=== PATIENT | female | born 2000 | race Two or more races ===

== ENCOUNTER → 2021-09-14 08:57 | Emergency (ER) | payer BC ==
[~2021-09-14] VITALS: Ht 167.6 cm; Wt 90.7 kg
[~2021-09-14 08:57] MED LIST: CIPR-173 PO; IBUP800T27 PO; KETOROLAC TROMETH 30 MG/ML 1ML VIAL IV ONE; ONDANSETRON HCL 4 MG/2 ML VIAL IV ONE; SODIUM CHLORIDE 0.9% 1,000 ML IV ONE; TAM04C PO; cefTRIAXone 1GM/50ML D5W 50 ML IV ONE
[2021-09-14 09:06] VITALS: BP 125/83
[2021-09-14 09:43] LABS: Urine Bacteria NONE SEEN /hpf (None Seen); Urine Blood TRACE /uL (Negative); Urine Mucus FEW (None Seen); Urine Specific Gravity 1.028 (1.001-1.035); Urine WBC 34 /hpf (0 - 5)
[2021-09-14 10:02] LABS: Basophils # (auto) 0.1 10 ^3/uL (0-0.2); Basophils % (auto) 1.5 % (0.0-2.0); Eosinophils # (auto) 0.1 10 ^3/uL (0-0.8); Eosinophils % (auto) 1.2 % (0.0-7.0); Hematocrit 42.2 % (36.0-46.0); Hemoglobin 14.2 g/dL (12.2-16.2); Lymphocytes # (auto) 1.7 10 ^3/uL (0.4-5.4); Lymphocytes % (auto) 19.2 % (10.0-50.0); Mean Corpuscular Hemoglobin 28.9 pg (28.0-32.0); Mean Corpuscular Hgb Conc. 33.6 g/dL (32.0-36.0); Mean Corpuscular Volume 85.9 fL (80.0-100.0); Monocytes # (auto) 0.5 10 ^3/uL (0-1.3); Monocytes % (auto) 5.3 % (0.0-12.0); Neutrophils # (auto) 6.3 10 ^3/uL (1.6-8.6); Neutrophils % (auto) 72.8 % (37.0-80.0); Nucleated Red Blood Cells % 0.1 %; Red Blood Cells 4.91 10^6/uL (4.0-5.20); Red Cell Distribution Width 14.9 % (11.8-14.3); White Blood Cell 8.7 10^3/uL (4.4-10.8)
[2021-09-14 10:08] LABS: BUN/Creatinine Ratio 13.5; Calcium 8.7 mg/dL (8.5-10.1); Potassium 4.4 mmol/L (3.5-5.1)
== END | disposition left against medical advice (07) ==
LOC: ER 08:57
DX: N20.0 Calculus of kidney (principal); N39.0 Urinary tract infection, site not specified; N13.30 Unspecified hydronephrosis; Z53.29 Procedure and treatment not carried out because of patient's decision for other reasons
CPT/HCPCS: 36415; 74176; 80048; 81001; 81025; 85025; 96361; 96365; 96375; 99284; J0696; J1885; J2405; J7030

== ENCOUNTER 2024-06-08 03:44 | Observation (INO) | payer BC, OTHER ==
[~2024-06-08] VITALS: Ht 167.6 cm; Wt 86.2 kg
[~2024-06-08 03:44] MED LIST changes: +IBUP-1456 PO; -IBUP800T27 PO; -KETOROLAC TROMETH 30 MG/ML 1ML VIAL IV ONE; -ONDANSETRON HCL 4 MG/2 ML VIAL IV ONE; -SODIUM CHLORIDE 0.9% 1,000 ML IV ONE; -TAM04C PO; +TAMS-35 PO; -cefTRIAXone 1GM/50ML D5W 50 ML IV ONE
[2024-06-08] MEDS ORDERED: PREN1TAB71 OR (04:10)
[2024-06-08] MEDS ORDERED: ONDANSETRON HCL 4 MG/2 ML VIAL IM ONE (05:15)
[2024-06-08] MEDS: HYDROmorphone HCL 2 MG/ML VL/or syr IV ONE (05:22)
[2024-06-08] MEDS: SODIUM CHLORIDE 0.9% 1,000 ML IV ONE (05:23)
[2024-06-08] MEDS: cefTRIAXone 1GM/50ML D5W 50 ML IV ONE (05:23)
[2024-06-08 05:52] VITALS: BP 119/62; PULSE 90; RESP 16
[2024-06-08 05:55] LABS: Basophils # (auto) 0 10 ^3/uL (0-0.2); Eosinophils # (auto) 0 10 ^3/uL (0-0.8); Hematocrit 32.5 % (36.0-46.0); Hemoglobin 10.8 g/dL (12.2-16.2); Lymphocytes # (auto) 1.1 10 ^3/uL (0.4-5.4); Lymphocytes % (auto) 7.8 % (10.0-50.0); Mean Corpuscular Hemoglobin 29.5 pg (28.0-32.0); Mean Corpuscular Hgb Conc. 33.4 g/dL (32.0-36.0); Mean Corpuscular Volume 88.4 fL (80.0-100.0); Monocytes # (auto) 0.3 10 ^3/uL (0-1.3); Monocytes % (auto) 2.2 % (0.0-12.0); Neutrophils # (auto) 12.7 10 ^3/uL (1.6-8.6); Platelet Count (auto) 241 10^3/uL (140-450); Red Blood Cells 3.67 10^6/uL (4.0-5.20); Red Cell Distribution Width 14.2 % (11.8-14.3); White Blood Cell 14.1 10^3/uL (4.4-10.8)
[2024-06-08 06:13] LABS: Alanine Aminotransferase 24 U/L (7-40); Albumin 3.7 g/dL (3.2-4.8); Alkaline Phosphatase 62 U/L (46-116); Anion Gap 12 (5-15); Aspartate Aminotransferase 17 U/L (13-40); BUN/Creatinine Ratio 15.6 (10.0-20.0); Bilirubin, Total 0.5 mg/dL (0.2-1.0); Blood Urea Nitrogen 10 mg/dL (9-23); Glucose 103 mg/dL (74-106); Sodium 139 mmol/L (136-145); Total Protein 5.9 g/dL (5.7-8.2)
--- NOTE | 2024-06-08 06:25 | DVHHP2 ---
OB CC & HPI Date Date of Admission: Jun 08, 2024 Patient Identification: : 4 Para: 1 EDC: August 19, 2024 EGA: 29w Chief Complaints: Reason for admission: other (h/o Renal Calculi ( Reports abdominal and back pain similar to what she has experienced inthe past)) Other reason for admission: Possible Renal Calculi Admission Nurse Assessment Rev: Yes History of Present Complaints 23yo G4, 1021, previous C- section x1, EDC 08/19/24, EGA 29weeks presents sto place and reports she thinks she has gall stone pain. Pain started on Saturday but has gradually worsened since then. Usually experiences kidney stone pain every 2 to 3years and it has been that long since she had one. States this pain is same characteristics as the last time she was diagnosed with kidney stone. Believes there are currently 2 stones; one that she may be able to pass before too long as she feels pain more around her bladder and also in her back Past Medical History Cardiac: No pertinent Hx Pulmonary: No pertinent Hx Central Nervous System: No pertinent Hx GI: No pertinent Hx Hemotology/Oncology: No pertinent Hx Hepatobiliary: No pertinent Hx Psychiatric: No pertinent Hx Musculoskeletal: No pertinent Hx Rheumotologic: No pertinent Hx Infectious Disease: No peritnent Hx ENT: No pertinent Hx Renal/: Other (Renal Stones) Endocrine: No pertinent Hx Dermatology: No pertinent Hx Past Surgical History: OB History OB History Care: Good Care Ultrasounds: Normal mid trimester US Obstetrical Complications: None Medical Complications: Other (Renal Stones) Other Concerns: None Allergies: Coded Allergies: No Known Drug Allergy (Verified Allergy, Unknown, 09/14/21) Home Meds Active Scripts Ibuprofen (Ibuprofen) 800 Mg Tab, 800 MG PO TID PRN, #30 TAB Prov:WALDEMAR VERA 09/14/21 Tamsulosin Hcl (Flomax) 0.4 Mg Cap, 0.4 MG PO DAILY, #20 CAP Prov:WALDEMAR VERA 09/14/21 Ciprofloxacin Hcl (Cipro) 500 Mg Tab, 500 MG PO BID for 7 Days, #14 TAB Prov:WALDEMAR VERA 09/14/21 Reported Medications Vit W/ Ferrous Fumara (PNV PLUS MULTIVI) Plus Tab, 1 OR, TAB 06/08/24 Review of Systems Constitutional: No symptom reported Ears, Nose, & Throat: No symptom reported Eyes: No symptom reported Pulmonary/Respiratory: No symptom reported Cardiovascular: No symptom reported Gastrointestinal: No symptom reported Genitourinary: Pain, Other (Right lower back pain) Musculoskeletal: No symptom reported Skin: No symptom reported Psychiatric: No symptom reported Endocrine: No symptom reported Hemotologic/Lymphatic: No symptom reported OB Admission Exam Physical Exam Vitals: Vital Signs Date Time Temp Pulse Resp B/P (MAP) Pulse Ox O2 Delivery O2 Flow Rate FiO2 06/08/24 05:52 90 16 119/62 HEENT: TMs Normal, Fontanelles Normal, Nasal Mucosa Normal, Eyes non-injected, Oropharynx Normal, PERRLA, Moist Membranes, EOMI Heart: Rhythm Normal Lungs: Clear Abdomen: Other (Rt CVA tenderness) Extremities: Normal Reflexes: Normal Heart Rate: 130's Accelerations: Accelerations Present Decelerations: No Decelerations Long-Term Variability: Average (6-25) Contractions on Admission: None OB Plan Plan Admitting Diagnosis: IUP at 29week 5d Presumptive Renal Calculi Plan: Expectant Management, Other (Obtain Kidney Ultrasound and OB ultrasound) Other Plan: Labs: CBC, CMP, UA C& S IV hydration Analgesia: Dilaudid 0.2mg IV Ceftriaxone 1G IVPB Ondansetron 4mg IV PRN for nausea & vomiting x1 dose Note: Above plan in consultation with Dr Gomez 7:[address] Casey Visit Coding OBGYN Date of Service: Jun 08, 2024 Billing Provider: DONELL WAY CNM NOTE TAKER Common Visit Codes: [id number] INP/OBS CARE (HIGH) DONELL WAY CNM Jun 08, 2024 06:25
[2024-06-08 06:31] LABS: Calcium 8.5 mg/dL (8.7-10.4); Carbon Dioxide 19 mmol/L (20-31); Chloride 108 mmol/L (98-107); Potassium 3.4 mmol/L (3.5-5.1)
[2024-06-08 06:34] LABS: Urine Bacteria FEW /hpf (None Seen); Urine Blood 3+ /uL (Negative); Urine Clarity Turbid (Clear); Urine Color Yellow (Yellow); Urine Mucus FEW (None Seen); Urine Protein, UAD 1+ (Negative); Urine Specific Gravity 1.027 (1.001-1.035); Urine Squamous Epithelial Cell FEW /hpf (<5); Urine Urobilinogen Normal (Negative); Urine WBC 4 /HPF (0-5); Urine pH 6.5 (5.0-9.0)
[2024-06-08] MEDS: ONDANSETRON HCL 4 MG/2 ML VIAL IV ONE (06:48)
--- NOTE | 2024-06-08 06:56 | DVH ---
EXAM: US Retroperitoneal Limited, Renal CLINICAL INDICATION: R flank pain/ history of kidney stones TECHNIQUE: Real-time limited ultrasound of the retroperitoneum with image documentation. COMPARISON: None FINDINGS: RIGHT KIDNEY: Moderate right hydronephrosis without obstructing calculus. Right kidney measures 11 .0 cm. LEFT KIDNEY: Unremarkable. No stones. No hydronephrosis. Left kidney measures 10.7 cm. OTHER FINDINGS: . Prevoid volume 113 cc. IMPRESSION: Moderate right hydronephrosis without obstructing calculus.
--- NOTE | 2024-06-08 07:09 | DVH ---
EXAM: US Second or Third Trimester , Transabdominal CLINICAL INDICATION: abd pain TECHNIQUE: Real-time transabdominal obstetrical ultrasound of the maternal pelvis and a second or th ird trimester with image documentation. COMPARISON: None FINDINGS: FETUS: HEART RATE: heart rate 135 beats per minute. PRESENTATION: PLACENTA: Unremarkable. No placenta previa or abruption. AMNIOTIC FLUID: BRIGITTE 22.1 cm. ANATOMY: Intracranial/face anatomy not seen. Spinal anatomy not seen. Abdominal anatomy not seen. Extremities not seen. Four-chamber heart not seen. Umbilical cord not seen. BIOMETRICS GESTATIONAL AGE: Gestational age 30 weeks and 3 days. GEORGE: GEORGE . EFW: Estimated weight 1544 g. BPD: BPD 7.6 cm. HC: HC 27.92 cm. HC AC 1.07. AC: AC 26.12 cm. FL: FL 5.76 cm. FL / AC 22.03. MATERNAL: UTERUS: Unremarkable. No myometrial mass. CERVIX: Unremarkable as visualized. Closed. FREE FLUID: No free fluid. OTHER FINDINGS: . CI 80.27. IMPRESSION: No placenta previa or abruption.
[2024-06-08] MEDS: SODIUM CHLORIDE 0.9% 1,000 ML IV SCH (07:27)
[2024-06-08] MEDS: ACETAMINOPHEN/CODEINE#3 (300/30mg) TAB PO PRN (07:53)
[2024-06-08] MEDS ORDERED: BACDST PO (08:00)
[2024-06-08] MEDS ORDERED: ACE3T PO (08:00)
--- NOTE | 2024-06-08 08:16 | DVHDS2 ---
Physician Discharge Progress N Final Diagnosis: IUP 29 wk acute rt flank pain Right hydronephrosis Hx of nephrolithiasis Complicated UTI Operations or Procedures: Operations or Procedures NST, OB US, Renal US Condition on Discharge: Stable Disposition: Home Discharge Instructions: Diet: Regular Activity: Light activity Follow Up/Referral: 2d w/ Dr Gomez Medications: Bactrim DS, Tylenol #3 Follow Up Care: Discharge Statement: "Patient was advised to return to the ER or call 911 if any headaches, diz ziness, shortness of breath, chest pain, abdominal pain, bleeding, fevers, or worsening of medical condition. Patient was counseled about treatment plan, medications, possible side effects, patientverbalized understanding. All questions were answered to the best of my ability. This discharge took greater then 30 minutes in planning, reviewing documentation, counseling the patient, and discussing with other team members." Visit Coding OBGYN Date of Service: Jun 08, 2024 Billing Provider: EFE BARRERA DO BENEFITS OFFICER Common Visit Codes: 86506-SFX/OBS SAME DATE (HIGH) BENEFITS OFFICER Procedure Codes: 68430-37- NON-STRESS TEST EFE BARRERA DO Jun 08, 2024 08:16
[2024-06-08] MEDS ORDERED: NITR-87 PO (21:17)
== END 2024-06-08 09:18 | disposition home or self-care (01) ==
LOC: LDRP 03:44
PROVIDERS: ADMIT Obstetrics & Gynecology; ATTEND Obstetrics & Gynecology
DX: O23.43 Unspecified infection of urinary tract in pregnancy, third trimester (principal); N39.0 Urinary tract infection, site not specified; O26.833 Pregnancy related renal disease, third trimester; N13.30 Unspecified hydronephrosis; O99.891 Other specified diseases and conditions complicating pregnancy; M54.9 Dorsalgia, unspecified; Z98.890 Other specified postprocedural states; Z79.899 Other long term (current) drug therapy; Z3A.29 29 weeks gestation of pregnancy
CPT/HCPCS: 36415; 59025; 76775; 76805; 80053; 81001; 81002; 85025; 87086; 94760; 96361; 96365; 96375; G0378; J0696; J1171; J2405; 96360

== ENCOUNTER 2024-06-08 20:07 | Emergency (ER) | payer BC, OTHER ==
[~2024-06-08] VITALS: Ht 167.6 cm; Wt 86.6 kg
[~2024-06-08 20:07] MED LIST changes: +ACE3T PO; +BACDST PO; +PREN1TAB71 OR
--- NOTE | 2024-06-08 21:08 | ED.PDOC ---
General HPI Comments 23 y.o female with PMH of kidney stones, reports to the ED for a chief complaint of right sided flank pain that started today. Patient is 29 weeks gestation with COMPENSATION ADMINISTRATOR history of . Patient was seen at L&D earlier today for the pain, had an ultrasound, blood work and UA done which came back unremarkable and was discharged home with Tylenol and Bactrim. Patient reports Tylenol is not helping pain, states she received Dilaudid 0.2 earlier and that relieved her pain for an hours. Patient denies any hematuria, dysuria, fever or chills. Chief Complaint: Flank Pain Time Seen by MD: 20:53 Reviewed notes: Nurses Notes, Medications, Allergies Allergies: Coded Allergies: No Known Drug Allergy (Verified Allergy, Unknown, 09/14/21) Home Meds Active Scripts Sulfamethoxazole W/Trimethopri (Bactrim Ds Tablet) 1 Tab Tb, 1 TAB PO BID for 7 Days, #14 TAB Prov:EFE BARRERA DO 06/08/24 Acetaminophen W/ Codeine (Tylenol W/Cod #3) 1 Tab Tb, 1 TAB PO Q6HPRN PRN, #20 TAB Prov:EFE BARRERA DO 06/08/24 Reported Medications Vit W/ Ferrous Fumara (PNV PLUS MULTIVI) Plus Tab, 1 OR, TAB 06/08/24 Discontinued Scripts Ibuprofen (Ibuprofen) 800 Mg Tab, 800 MG PO TID PRN, #30 TAB Prov:WALDEMAR VERA 09/14/21 Tamsulosin Hcl (Flomax) 0.4 Mg Cap, 0.4 MG PO DAILY, #20 CAP Prov:WALDEMAR VERA 09/14/21 Ciprofloxacin Hcl (Cipro) 500 Mg Tab, 500 MG PO BID for 7 Days, #14 TAB Prov:WALDEMAR VERA 09/14/21 Information Source: Patient Mode of Arrival: Ambulatory Severity: Moderate Timing: Hours Duration: Since onset Onset: Spontaneous Symptoms: None History of: Kidney stone Location: (R) Flank associated signs and symptoms: Flank Pain Past Medical History PAST MEDICAL HISTORY: Kidney Stones Surgical History: Denies all surgeries COMPENSATION ADMINISTRATOR History: No Pertinent COMPENSATION ADMINISTRATOR History Family History Family History: Reviewed,noncontributory to illness Social History Smoker: Non-Smoker Alcohol: Denies ETOH Use Drugs: Denies Drug Use Lives In: Home Constitutional: denies: chills, diaphoresis, fatigue, fever, malaise, sweats, weakness, others EENTM: denies: blurred vision, double vision, ear bleeding, ear discharge, ear drainage, ear pain, ear ringing, eye pain, eye redness, hearing loss, mouth pain, mouth swelling, nasal discharge, nose bleeding, nose congestion, nose pain, photophobia, tearing, throat pain, throat swelling, voice changes, others Respiratory: denies: cough, hemoptysis, orthopnea, SOB at rest, shortness of breath, SOB with excertion, stridor, wheezing, others Cardiovascular: denies: chest pain, dizzy spells, diaphoresis, Dyspnea on exertion, edema, irregular heart beat, left arm pain, lightheadedness, palpitations, PND, syncope, others Gastrointestinal: denies: abdomen distended, abdominal pain, blood streaked bowels, constipated, diarrhea, dysphagia, difficulty swallowing, hematemesis, melena, nausea, poor appetite, poor fluid intake, rectal bleeding, rectal pain, vomiting, others Genitourinary: reports: flank pain (right ); denies: abnormal vagina bleeding, burning, dyspareunia, dysuria, frequency, hematuria, incontinence, pain, , vagina discharge, urgency, others Neurological: denies: dizziness, fainting, headache, left sided numbness, left sided weakness, numbness, paresthesia, pre-existing deficit, right sided numbness, right sided weakness, seizure, speech problems, tingling, tremors, weakness, others Musculoskeletal: denies: back pain, gout, joint pain, joint swelling, muscle pain, muscle stiffness, neck pain, others Integumetry: denies: bruises, change in color, change in hair/nails, dryness, laceration, lesions, lumps, rash, wounds, others Allergic/Immunocompromised: denies: Difficulty Healing, Frequent Infections, Hives, Itching, others Hematologic/Lymphatic: denies: anemia, blood clots, easy bleeding, easy bruising, swollen glands, others Endocrine: denies: excessive hunger, excessive sweating, excessive thirst, excessive urination, flushing, intolerance to cold, intolerance to heat, unexplained weight gain, unexplained weight loss, others Psychiatric: denies: anxiety, bipolar disorder, depression, hopeless, panic disorder, schizophrenia, sleepless, suicidal, others All Other Systems: Reviewed and Negative Physical Exam General Appearance: No Apparent Distress, Normal HEENT: Normal ENT Inspection, Pharynx Normal, TMs Normal Neck: Full Range of Motion, Non-Tender, Normal, Normal Inspection Respiratory: Chest Non-Tender, Lungs Clear, No Accessory Muscle Use, No Respiratory Distress, Normal Breath Sounds Cardiovascular: No Edema, No JVD, No Murmur, No Gallop, Normal Peripheral Pulses, Regular Rate/Rhythm Breast Exam: Deferred Gastrointestinal: No Organomegaly, Non Tender, No Pulsatile Mass, Normal Bowel Sounds, Soft Genitalia: Deferred Pelvic: Deferred Rectal: Deferred Extremities: No calf tenderness, Normal capillary refill, Normal inspection, Normal range of motion, Non-tender, No pedal edema Musculoskeletal : Apperance: Normal Neurologic: Alert, porcelain technician II-XII nml as Tested, No Motor Deficits, Normal Affect, Normal Mood, No Sensory Deficits Cerebellar Function: Normal Reflexes: Normal Skin: Dry, Normal Color, Warm Lymphatic: No Adenopathy Was a procedure done? Was a procedure done?: No Differential Diagnosis Kidney stone (Female): Musculoskeletal pain, Pancreatitis, Pyelonephritis X-Ray, Labs, Meds, VS Vital Signs Date Time Temp Pulse Resp B/P (MAP) Pulse Ox O2 Delivery O2 Flow Rate FiO2 06/08/24 20:34 98.7 96 18 116/62 (80) 97 X-Ray, Labs, Meds, VS Comment LABS AND ULTRASOUND REVIEWED FROM PRIOR VISIT IN L&D. PATIENT SHOWS SIGNS OF HYDRONEPHROSIS IN THE RIGHT KIDNEY ALONG WITH ELEVATED W LUIS BLOOD COUNT AND BLOOD IN HER URINE, HIGHLY SUSPICIOUS OF KIDNEY STONE WITH POSSIBLE URINARY TRACT INFECTION PATIENT WAS GIVEN 1 G ROCEPHIN IN L AND D AND SENT HOME WITH BACTRIM PATIENT STATES SHE WAS CONCERNED ABOUT TAKING BACTRIM HER PHARMACY ADVISED AGAINST IT PATIENT WILL BE SWITCHED AND STARTED ON MACROBID, GIVEN MORPHINE 4 MG IN THE ER. Time of 1ST Reevaluation: 21:11 Reevaluation 1ST: Unchanged Patient Education/Counseling: Diagnosis, Treatment, Prognosis, Need For Follow Up (PATIENT ADVISED TO FOLLOW-UP IN THE EMERGENCY ROOM IN THE NEXT 24 TO 48 HOURS IF SYMPTOMS DO NOT IMPROVE. ADVISED FOLLOW-UP WITH PCP IN THE NEXT 3 TO 5 DAYS. PATIENT VERBALIZED UNDERSTANDING. ) Family Education/Counseling: No Family Present Departure 1 Departure Time of Disposition: 21:16 Impression: Primary Impression: UTI (urinary tract infection) Qualified Codes: N30.01 - Acute cystitis with hematuria Disposition: HOME / SELF CARE / HOMELESS Condition: Fair e-Prescriptions Nitrofurantoin Monohydrate Mac (Macrobid) 100 Mg Cap 100 MG PO BID for 7 Days, #14 CAP Prov: SHO THIBODEAUX 06/08/24 Discharged With: Self Critical Care Note Critical Care Time?: No Stability Stability form required: No I personally scribed for SHO THIBODEAUX ([email or web address]) on 06/08/24 at 21:08. Electronically submitted by Nupur Ortiz ([facility]). SHO THIBODEAUX Jun 08, 2024 21:08
[2024-06-08] MEDS ORDERED: NITR-87 PO (21:17)
[2024-06-08 22:14] VITALS: PULSE 97; RESP 18; TEMP 98.3; O2SAT 98
[2024-06-08 22:34] VITALS: BP 129/79; PULSE 97; RESP 18
[2024-06-08] MEDS: MORPHINE SULFATE 4 MG/ML SYR/VIAL IM ONE (22:34)
[2024-06-08 22:50] LABS: Urine Bacteria MANY /hpf (None Seen); Urine Blood Negative /uL (Negative); Urine Clarity Turbid (Clear); Urine Color Light-Yellow (Yellow); Urine Mucus FEW (None Seen); Urine Protein, UAD 1+ (Negative); Urine Specific Gravity 1.021 (1.001-1.035); Urine Squamous Epithelial Cell MOD /hpf (<5); Urine Urobilinogen Normal (Negative); Urine WBC 7 /HPF (0-5); Urine pH 6.5 (5.0-9.0)
== END 2024-06-08 22:34 | disposition home or self-care (01) ==
LOC: ER 20:07
DX: O23.43 Unspecified infection of urinary tract in pregnancy, third trimester (principal); N39.0 Urinary tract infection, site not specified; Z3A.29 29 weeks gestation of pregnancy; O23.13 Infections of bladder in pregnancy, third trimester
CPT/HCPCS: 81001; 96372; 99283; J2270

== ENCOUNTER 2024-07-31 10:12 | Observation (INO) | payer BC, OTHER ==
[~2024-07-31 10:12] MED LIST changes: -CIPR-173 PO; -IBUP-1456 PO; +NITR-87 PO; -TAMS-35 PO
--- NOTE | 2024-07-31 11:11 | DVH ---
CLINICAL HISTORY: Polyhydramnios COMPARISON: Prior ultrasound dated 06/08/2024. TECHNIQUE: biophysical profile was performed. Transabdominal sonographic images of the fetus we re obtained. FINDINGS: The fetus is in transverse position with head to the maternal right side. heart rate measures 147 BPM. Amniotic fluid index measures 24 cm. The placenta is fundal in position without niranjan dence of previa or abruption. BPP profile is an overall score of 8/8, with 2/2 points for breathing, with at least one episode of breathing over a 30 second duration during a 30 minute observation, 2/2 points for m ovements, with 3 or more discrete body or limb movements, 2/2 points for tone, with one or more episodes of extremity extension with return to flexion, or opening and closing of hand, and 2/ 2 points for amniotic fluid, with at least 1 pocket of amniotic fluid that measures 2 cm in 2 perpend icular planes. IMPRESSION: 1. BPP score of 8/8. 2. BRIGITTE measures 24 cm. 3. Transverse orientation with head to the maternal right side.
--- NOTE | 2024-07-31 18:11 | DVHDS2 ---
Physician Discharge Progress N Final Diagnosis: 3rd trim polyhydramnios Secondary Diagnosis: Encounter for surveillance Operations or Procedures: Operations or Procedures NST/BPP/BRIGITTE Commentary: Commentary PATIENT: CHRISTOPHER GONZALEST: [id number] UNIT: [id number] : 2000 LOC: [facility] ROOM / BED: TRIAGE1 / A AGE / SEX: 24 / F ADM STATUS: ADM IN SERVICE 1025 ORDERING PHYSICIAN: EFE BARRERA DO PROCEDURE(s): BPP - BIOPHYSICAL PROFILE REASON: Polyhydramnios ORDER NUMBER(s): [id number], ACCESSION NUMBER(s): [id number] CLINICAL HISTORY: Polyhydramnios COMPARISON: Prior ultrasound dated 06/08/2024. TECHNIQUE: biophysical profile was performed. Transabdominal sonographic images of the fetus were obtained. FINDINGS: The fetus is in transverse position with head to the maternal right side. heart rate measures 147 BPM. Amniotic fluid index measures 24 cm. The placenta is fundal in position without evidence of previa or abruption. BPP profile is an overall score of 8/8, with 2/2 points for breathing, with at least one episode of breathing over a 30 second duration during a 30 minute observation, 2/2 points for movements, with 3 or more discrete body or limb movements, 2/2 points for tone, with one or more episodes of extremity extension with return to flexion, or opening and closing of hand, and 2/2 points for amniotic fluid, with at least 1 pocket of amniotic fluid that measures 2 cm in 2 perpendicular planes. IMPRESSION: 1. BPP score of 8/8. 2. BRIGITTE measures 24 cm. 3. Transverse orientation with head to the maternal right side. ATED BY: ABIODUN OTT DO DICTATED DATE/TIME: 07/31/24 1109 Condition on Discharge: Stable Disposition: Home Discharge Instructions: Diet: Regular Activity: Light activity Follow Up/Referral: As scheduled Medications: N/A Follow Up Care: Discharge Statement: "Patient was advised to return to the ER or call 911 if any headaches, dizziness, shortness of breath, chest pain, abdominal pain, bleeding, fevers, or worsening of medical condition. Patient was counseled about treatment plan, medications, possible side effects, patientverbalized understanding. All questions were answered to the best of my ability. This discharge took greater then 30 minutes in planning, reviewing documentation, counseling the patient, and discussing with other team members." Visit Coding OBGYN Date of Service: Jul 31, 2024 Billing Provider: EFE BARRERA DO INGREDIENT SCALER HELPER Common Visit Codes: 81976-XPL/OBS SAME DATE (MOD) EFE BARRERA DO Jul 31, 2024 18:11
== END 2024-07-31 11:33 | disposition home or self-care (01) ==
LOC: UNDOADMOB 10:12 → LDRP 10:12 → UNDODISOB 11:33
PROVIDERS: ADMIT Obstetrics & Gynecology; ATTEND Obstetrics & Gynecology
DX: O40.3XX0 Polyhydramnios, third trimester, not applicable or unspecified (principal); Z98.890 Other specified postprocedural states; Z79.899 Other long term (current) drug therapy; Z3A.37 37 weeks gestation of pregnancy
CPT/HCPCS: 59025; 76819; 81002; 94760; G0378

== ENCOUNTER 2024-08-04 06:35 | Observation (INO) | payer OTHER ==
--- NOTE | 2024-08-04 15:06 | DVH ---
Procedure: US BIOPHYSICAL PROFILE 08/04/2024 02:35 PM Indication: poly Comparison: US BIOPHYSICAL PROFILE on DOS: 07/31/24 Technique: Sonogram of gravid uterus utilizing grayscale and color techniques. FINDINGS: Single living intrauterine gestation. Presentation: Transverse with head on maternal right Placenta: Fundal heart rate: 118 bpm BRIGITTE: 25.1 cm, DVP: 7.3 cm Biophysical Profile: breathing score: 2 movement score: 2 tone: 2 Quantitative BRIGITTE score: 2 Total score: 8/8 IMPRESSION: 1. Single living as above. 2. Biophysical profile score: 8/8. 3. Polyhydramnios
--- NOTE | 2024-08-04 22:44 | DVHDS2 ---
Physician Discharge Progress N Final Diagnosis: testing for polyhydramnios Operations or Procedures: Operations or Procedures 24yo IUP@37.5wks VSS NST reactive FKC/PTL precautions reviewed. Dr. Gomez consulted, agrees with POC. Laboratory Tests Test 08/04/24 15:42 08/04/24 16:25 Range/Units POC Glucose 59 L 75 70-106 mg/dl Pt ate food and drank juice then blood glucose rechecked by RN. Pt did not do GTT, so blood glucose check was done. Other Interventions Other Interventions [place] [address] Ph: [phone] DIAGNOSTIC IMAGING Diagnostic Imaging Report : [id number] Signed PATIENT: JEROME GONZALESACCT: [id number] UNIT: [id number] : 2000 LOC: [facility] ROOM / BED: [facility] / AGE / SEX: 24 / F ADM STATUS: ADM IN SERVICE 1421 ORDERING PHYSICIAN: STEFANO SCHMIDT CNM PROCEDURE(s): BPP - BIOPHYSICAL PROFILE REASON: poly ORDER NUMBER(s): [id number], ACCESSION NUMBER(s): [id number] Procedure: US BIOPHYSICAL PROFILE 08/04/2024 02:35 PM Indication: poly Comparison: US BIOPHYSICAL PROFILE on DOS: 07/31/24 Technique: Sonogram of gravid uterus utilizing grayscale and color techniques. FINDINGS: Single living intrauterine gestation. Presentation: Transverse with head on maternal right Placenta: Fundal heart rate: 118 bpm BRIGITTE: 25.1 cm, DVP: 7.3 cm Biophysical Profile: breathing score: 2 movement score: 2 tone: 2 Quantitative BRIGITTE score: 2 Total score: 8/8 IMPRESSION: 1. Single living as above. 2. Biophysical profile score: 8/8. 3. Polyhydramnios ATED BY: DANIELA WERNER MD DICTATED DATE/TIME: 08/04/24 150 SIGNED BY: DANIELA WERNER MD SIGNED DATE/TIME: 08/04/24 150 CC: Condition on Discharge: Stable Disposition: Home Discharge Instructions: Diet: Regular Activity: No Restrictions, As Tolerated Medications: see med list Follow Up Care: Specialist: f/u in 3 days Discharge Statement: "Patient was advised to return to the ER or call 911 if any headaches, dizziness, shortness of breath, chest pain, abdominal pain, bleeding, fevers, or worsening of medical condition. Patient was counseled about treatment plan, medications, possible side effects, patientverbalized understanding. All questions were answered to the best of my ability. This discharge took greater then 30 minutes in planning, reviewing documentation, counseling the patient, and discussing with other team members." Visit Coding OBGYN Date of Service: Aug 04, 2024 Billing Provider: STEFANO SCHMIDT CNM MDM DEVELOPER Common Visit Codes: [id number] OBS CARE (HIGH) MDM DEVELOPER Procedure Codes: 12679-16- NON-STRESS TEST STEFANO SCHMIDT CNM Aug 04, 2024 22:44
== END 2024-08-04 16:43 | disposition home or self-care (01) ==
LOC: UNDOADMOB 12:00 → LDRP 12:00
PROVIDERS: ADMIT Obstetrics & Gynecology; ATTEND Obstetrics & Gynecology
DX: O40.3XX0 Polyhydramnios, third trimester, not applicable or unspecified (principal); Z98.890 Other specified postprocedural states; Z79.899 Other long term (current) drug therapy; Z3A.37 37 weeks gestation of pregnancy
CPT/HCPCS: 59025; 76819; 81002; 82948; 82962; G0378

== ENCOUNTER 2024-08-07 06:53 | Observation (INO) | payer OTHER ==
--- NOTE | 2024-08-07 13:16 | DVH ---
BIOPHYSICAL PROFILE HISTORY: Poly TECHNIQUE: Multiple transabdominal real-time grayscale sonographic images through the gravid uterus o f the fetus with duplex doppler color flow and M-mode spectral analysis FINDINGS: BIOPHYSICAL PROFILE: breathing score: 2 movement score: 2 tone score: 2 Quantitative BRIGITTE score: 2 (BRIGITTE: 18.0 cm.) Total score: 8/8 Single live fetus in transverse materanal right presentation. heart rate 120 beats per minute. Posterior placenta without previa or abruption Biophysical profile score 8/8 corresponding to an GEORGE of 08/20/24 IMPRESSION: Biophysical profile score: 8/8
--- NOTE | 2024-08-08 07:43 | DVHDS2 ---
Physician Discharge Progress N Final Diagnosis: iup at 38wks with poly Operations or Procedures: Operations or Procedures nst reactive reviewed,bpp nl Condition on Discharge: Good Disposition: Home Discharge Instructions: Diet: Regular Activity: No Restrictions, As Tolerated Follow Up/Referral: follow up on next for preop labs and NST Medications: na Follow Up Care: Specialist: 3d Discharge Statement: "Patient was advised to return to the ER or call 911 if any headaches, dizziness, shortness of breath, chest pain, abdominal pain, bleeding, fevers, or worsening of medical condition. Patient was counseled about treatment plan, medications, possible side effects, patientverbalized understanding. All questions were answered to the best of my ability. This discharge took greater then 30 minutes in planning, reviewing documentation, counseling the patient, and discussing with other team members." Visit Coding OBGYN Date of Service: August 07, 2024 Billing Provider: GAGAN CRESPO DO WHITING CAN WORKER Common Visit Codes: [id number] OBS CARE (HIGH) WHITING CAN WORKER Procedure Codes: 38936-14- NON-STRESS TEST GAGAN CRESPO DO August 08, 2024 07:43
== END 2024-08-07 13:40 | disposition home or self-care (01) ==
LOC: LDRP 12:00
PROVIDERS: ADMIT Obstetrics & Gynecology; ATTEND Obstetrics & Gynecology
DX: O40.3XX0 Polyhydramnios, third trimester, not applicable or unspecified (principal); Z3A.38 38 weeks gestation of pregnancy; Z98.890 Other specified postprocedural states; Z79.899 Other long term (current) drug therapy
CPT/HCPCS: 59025; 76819; 81002; G0378

== ENCOUNTER 2024-08-13 06:48 | Observation (INO) | payer BC, OTHER ==
[2024-08-14] MEDS ORDERED: HYDR-4072 PO (09:49)
[2024-08-14] MEDS ORDERED: IBUP-1456 PO (09:49)
[2024-08-14] MEDS ORDERED: DOCU-94 PO (09:49)
--- NOTE | 2024-08-14 12:57 | DVHDS2 ---
Physician Discharge Progress N Final Diagnosis: 39wks with polyhydramnai Operations or Procedures: Operations or Procedures nst reactive reviewed,sono Condition on Discharge: Good Disposition: Home Discharge Instructions: Diet: Regular Activity: No Restrictions, As Tolerated Medications: na Follow Up Care: Specialist: 1d Discharge Statement: "Patient was advised to return to the ER or call 911 if any headaches, dizziness, shortness of breath, chest pain, abdominal pain, bleeding, fevers, or worsening of medical condition. Patient was counseled about treatment plan, medications, possible side effects, patient�verbalized understanding. All questions were answered to the best of my ability. This discharge took greater then 30 minutes in planning, reviewing documentation, counseling the patient, and discussing with other team members." Visit Coding OBGYN Date of Service: August 13, 2024 Billing Provider: GAGAN CRESPO DO LINOTYPE OPERATOR Common Visit Codes: 38834-JYCORLQ OBS CARE (HIGH) LINOTYPE OPERATOR Procedure Codes: 33809-27- NON-STRESS TEST GAGAN CRSEPO DO August 14, 2024 12:57
== END 2024-08-13 11:19 | disposition home or self-care (01) ==
LOC: LDRP 10:16
PROVIDERS: ADMIT Obstetrics & Gynecology; ATTEND Obstetrics & Gynecology
DX: O40.3XX0 Polyhydramnios, third trimester, not applicable or unspecified (principal); Z3A.39 39 weeks gestation of pregnancy; Z79.899 Other long term (current) drug therapy
CPT/HCPCS: 59025; 81002; 94760; A4315; G0378

== ENCOUNTER 2024-08-14 03:57 | Inpatient (IN) | payer BC, OTHER ==
[2024-08-13 12:16] LABS: Basophils # (auto) 0 10 ^3/uL (0-0.2); Basophils % (auto) 0.5 % (0.0-2.0); Eosinophils # (auto) 0 10 ^3/uL (0-0.8); Eosinophils % (auto) 0.5 % (0.0-7.0); Hematocrit 35.6 % (36.0-46.0); Hemoglobin 12.1 g/dL (12.2-16.2); Lymphocytes # (auto) 1.6 10 ^3/uL (0.4-5.4); Lymphocytes % (auto) 17.4 % (10.0-50.0); Mean Corpuscular Hemoglobin 29.4 pg (28.0-32.0); Mean Corpuscular Volume 86.4 fL (80.0-100.0); Monocytes # (auto) 0.4 10 ^3/uL (0-1.3); Monocytes % (auto) 4.8 % (0.0-12.0); Neutrophils # (auto) 6.9 10 ^3/uL (1.6-8.6); Neutrophils % (auto) 76.8 % (37.0-80.0); Nucleated Red Blood Cells % 0.2 %; Platelet Count (auto) 241 10^3/uL (140-450); Red Blood Cells 4.11 10^6/uL (4.0-5.20); Red Cell Distribution Width 15.1 % (11.8-14.3); White Blood Cell 8.9 10^3/uL (4.4-10.8)
[2024-08-13 12:19] LABS: Urine Bacteria FEW /hpf (None Seen); Urine Blood Negative /uL (Negative); Urine Clarity Clear (Clear); Urine Color Light-Yellow (Yellow); Urine Protein, UAD Negative (Negative); Urine Specific Gravity 1.009 (1.001-1.035); Urine Squamous Epithelial Cell FEW /hpf (<5); Urine Urobilinogen Normal (Negative); Urine WBC 2 /HPF (0-5)
[2024-08-13 12:30] LABS: Amphetamine Screen, Urine Neg (NEGATIVE); Barbiturate Scree,Urine Neg (NEGATIVE); Opiate Scree,Urine Neg (NEGATIVE); Phencyclidine Screen, Urine Neg (NEGATIVE)
[2024-08-13 12:30] LABS: Alanine Aminotransferase 12 U/L (7-40); Alkaline Phosphatase 110 U/L (46-116); Anion Gap 10 (5-15); BUN/Creatinine Ratio 9.4 (10.0-20.0); Calcium 9.3 mg/dL (8.7-10.4); Carbon Dioxide 20 mmol/L (20-31); Glucose 77 mg/dL (74-106); Potassium 3.7 mmol/L (3.5-5.1); Sodium 140 mmol/L (136-145); Total Protein 6.4 g/dL (5.7-8.2)
[2024-08-13 12:31] LABS: Benzodiazephine Screen, Urine Neg (NEGATIVE); Cannabinoid Screen, Urine Neg (NEGATIVE); Cocaine Screen, Urine Neg (NEGATIVE)
[2024-08-13 12:31] LABS: Albumin 3.9 g/dL (3.2-4.8); Aspartate Aminotransferase 15 U/L (13-40); Bilirubin, Total 0.6 mg/dL (0.2-1.0)
[2024-08-13 12:32] LABS: INR 0.97 (0.9-1.15); Partial Thromboplastin Time 25.6 SEC (24.5-34.5); Prothrombin Time 10.3 sec (9.3-11.8)
[2024-08-13 12:34] LABS: Blood Urea Nitrogen 6 mg/dL (9-23); Chloride 110 mmol/L (98-107)
[2024-08-14] VITALS (15 sets, daily range): BP systolic 96–122; BP diastolic 44–81; PULSE 62–88; RESP 14–18; TEMP 98–98.7; O2SAT 93–100
[~2024-08-14] VITALS: Ht 167.6 cm; Wt 72.6 kg
[2024-08-14] MEDS: LACTATED RINGER'S 1,000 ML IV ONE (04:45)
[2024-08-14] MEDS: LACTATED RINGER'S 1,000 ML IV SCH (05:54)
[2024-08-14] MEDS ORDERED: MORPHINE SULF PF 5 MG/10 ML VIAL ONE (08:08)
[2024-08-14] MEDS ORDERED: ONDANSETRON HCL 4 MG/2 ML VIAL ONE (08:26)
[2024-08-14] MEDS ORDERED: ceFAZolin 1GM/50ML 50 ML IV SCH (08:30)
[2024-08-14] MEDS: GUM (CHEWING) 1 GUM CHEW CHEW ONE (08:30)
[2024-08-14] MEDS ORDERED: ONDANSETRON HCL 4 MG/2 ML VIAL IV PRN ×2 (08:30→09:30)
[2024-08-14] MEDS ORDERED: LACT. RINGERS/OXYTOCIN 20UNITS 1,000 ML IV ONE (08:30)
[2024-08-14] MEDS ORDERED: ePHEDrine SULFATE 50 MG/ML AMP ONE (08:31)
[2024-08-14] MEDS ORDERED: MIDAZOLAM HCL 2MG/2ML 2ml VIAL (1mg/ml) ONE (08:40)
[2024-08-14] MEDS ORDERED: PROPOFOL 10 MG/ML 20 ML IV ONE ×2 (08:51→09:03)
[2024-08-14] MEDS ORDERED: DexAMETHasone SOD PHOS 10MG/1ML VIAL INJ IV PRN (09:30)
[2024-08-14] MEDS: NALBUPHINE HCL 10 MG/1ml INJECTION SUBCUT ONE (09:30)
[2024-08-14] MEDS ORDERED: NALOXONE HCL 0.4 MG/ML VIAL IV PRN (09:30)
[2024-08-14] MEDS ORDERED: HYDROmorphone HCL 2 MG/ML VL/or syr IV PRN ×2 (09:30→09:45)
[2024-08-14] MEDS ORDERED: ACETAMINOPHEN IV 1000 MG/100ML (10MG/ML) IV PRN (09:45)
[2024-08-14] MEDS: ONDANSETRON HCL 4 MG/2 ML VIAL IV ONE (09:45)
[2024-08-14] MEDS ORDERED: MEPERIDINE HCL (25 MG/ML) 1ML VIAL IV PRN (09:45)
--- NOTE | 2024-08-14 09:46 | DVHOP2 ---
Operative Report DATE OF OPERATION:08/14/24 PREOPERATIVE DIAGNOSES: [term preg desires rcs ,anxiety,polyhydramnia POSTOPERATIVE DIAGNOSES: [same] OPERATION PERFORMED: Repeat Section FINDINGS: [b] . Apgars of [8] and [9]. Weight [8-3] [good] crying tone. [clear and excessive fld] amniotic fluid. Placenta and three-vessel were intact. Normal tubes, ovaries, and uterus. SURGEON: Daniela Gomez D.O. BINGO ATTENDANT: data reduction technician, [lorie]. ANESTHESIOLOGIST: Kaye reina ANESTHESIA: [Duramorph spinal, regional]. COMPLICATIONS: [none]. ESTIMATED BLOOD LOSS: [800] mL. BLOOD PRODUCTS USED: [na]. PROCEDURE IN DETAIL: The patient was taken to the operating room, placed in sitting position, and spinal was placed without difficulty. She was then prepped and draped in a sterile fashion. A low Pfannenstiel incision was made scapel. At this point, it was carried down through the rectus fascia, nicked in the midline, and carried laterally. The rectus muscles were in the midline. Peritoneum was identified and entered with sharp dissection. Vesicouterine peritoneum was taken off the lower uterine segment. A lower uterine transverse incision was made with a scalpel down the chorionic membranes, ruptured with hemostat. Infant was in vertex position. One hand was placed in the lower uterine segment. Head was essentially delivered spontaneously. Nose and mouth were bulb suctioned. Shoulders and torso were delivered without difficulty. Again, pharynx, nose, and mouth were re-suctioned with vigorous crying tone. Cord was cut. The infant was handed off to the awaiting Respiratory. At this point, umbilical blood sample was taken. Placenta was removed. Uterus was exteriorized, cleared off all clots and debris, irrigated, and closed with a double layer of 0-Vicryl. The vesicouterine peritoneum was incorporated into this closure. We had complete hemostasis. EBL was [800] mL. The instrument, lap, and sponge count was correct x1. The uterus was placed back into the peritoneum. The peritoneal cavity was re-inspected and the lower uterine incision with good hemostasis. We closed the peritoneum with running continuous of 2-0 Vicryl. The Rectus Fascia was closed with 0-PDS, running continuous, looped-0. The skin was closed undermined, irrigated, and close with jacqueline. CONDITION: The patient's and the infant's condition is stable and but guarded. Visit Coding OBGYN Date of Service: August 14, 2024 Billing Provider: ADNIELA GOMEZ DO BREASTFEEDING PEER COUNSELOR Common Visit Codes: 06555-RAN/OBS SAME DATE (HIGH) BREASTFEEDING PEER COUNSELOR Procedure Codes: 46717-HKALN OB CARE, DEL, 72453-M-BZFOHTP DELIVERY ONLY DANIELA GOMEZ DO August 14, 2024 09:46
--- NOTE | 2024-08-14 09:48 | POSTOP ---
Post-Operative Note Post-Operative Note Preop Diagnosis iup at 39wks desires rcs,anxiety ,polyhydramnia Postop Diagnosis: same Operation performed rcs Specimen baby girl,apgars 8-9 Anesthesia: Regional Anesthesiologist: nugyen Blood Loss(fluid mgmt) 800ml Surgeon Gagan Gomez Supervisor Winding Department lorie Implant na Complications & Mgmt none Additional Remarks h and p [id number] Date 08/14/24 Time 09:46 Visit Coding OBGYN Date of Service: August 14, 2024 Billing Provider: GAGAN GOMEZ DO SUPERVISOR FEED HOUSE Common Visit Codes: [id number] INP/OBS CARE (HIGH) SUPERVISOR FEED HOUSE Procedure Codes: [id number] DELIVERY ONLY GAGAN GOMEZ DO August 14, 2024 09:48
[2024-08-14] MEDS ORDERED: DOCU-94 PO (09:49)
[2024-08-14] MEDS ORDERED: HYDR-4072 PO (09:49)
[2024-08-14] MEDS ORDERED: IBUP-1456 PO (09:49)
[2024-08-14] MEDS: ceFAZolin 2 GM/D5W50ml 50 ML IV ONE (10:17)
[2024-08-14] MEDS: diphenhdrAMINE HCL 50 MG/1 ML VL IV PRN (11:19)
[2024-08-14] MEDS: NALBUPHINE HCL 10 MG/1ml INJECTION IV PRN (12:48)
[2024-08-14] MEDS: ceFAZolin 1GM/50ML 50 ML IV SCH (17:17)
[2024-08-14] MEDS: ACETAMINOPHEN IV 1000 MG/100ML (10MG/ML) IV PRN (20:55)
[2024-08-14 21:11] LABS: Basophils # (auto) 0 10 ^3/uL (0-0.2); Basophils % (auto) 0.2 % (0.0-2.0); Eosinophils # (auto) 0 10 ^3/uL (0-0.8); Eosinophils % (auto) 0.1 % (0.0-7.0); Hematocrit 31.3 % (36.0-46.0); Hemoglobin 10.6 g/dL (12.2-16.2); Lymphocytes # (auto) 1.7 10 ^3/uL (0.4-5.4); Lymphocytes % (auto) 13.4 % (10.0-50.0); Mean Corpuscular Hgb Conc. 33.7 g/dL (32.0-36.0); Monocytes # (auto) 0.9 10 ^3/uL (0-1.3); Monocytes % (auto) 7.1 % (0.0-12.0); Neutrophils # (auto) 10.1 10 ^3/uL (1.6-8.6); Neutrophils % (auto) 79.2 % (37.0-80.0); Platelet Count (auto) 219 10^3/uL (140-450); Red Blood Cells 3.65 10^6/uL (4.0-5.20); Red Cell Distribution Width 14.9 % (11.8-14.3); White Blood Cell 12.8 10^3/uL (4.4-10.8)
[2024-08-15] VITALS (12 sets, daily range): BP systolic 91–123; BP diastolic 47–79; PULSE 58–88; RESP 16–18; TEMP 98–98.7; O2SAT 96–100
--- NOTE | 2024-08-15 03:39 | DVHPN2 ---
Progress Note Date Seen: August 15, 2024 Subjective S: Lochia minimal. Clear liquid diet well tolerated. Barth cath draining clear urine to bag by gravity. Pain relieved with IV analgesics. Passing flatus but no BM yet. w/o problem vital signs Vital Sign Date Time Temp Pulse Resp B/P (MAP) Pulse Ox O2 Delivery O2 Flow Rate FiO2 08/15/24 01:45 88 16 98 08/14/24 22:45 98.7 104/44 (64) 98.7 08/14/24 19:15 Room Air 08/14/24 09:25 0 93 Total Intake and Output 08/14/24 08/14/24 08/15/24 15:00 23:00 07:00 Output Total 2250 ml 240 ml Balance -2250 ml -240 ml medications Current Medications Medications Dose Ordered Sig/Lynn Route Start Time Stop Time Status Last Admin Dose Admin Lactated Ringer's 1,000 ml @ 125 mls/hr Q8H IV 08/14/24 04:45 08/14/24 20:55 125 MLS/HR Ondansetron HCl 4 mg Q4HP PRN IV 08/14/24 08:30 Diphenhydramine HCl 25 mg Q4HP PRN IV 08/14/24 09:30 08/15/24 01:43 25 MG Ondansetron HCl 4 mg Q4HP PRN IV 08/14/24 09:30 Ketorolac Tromethamine 30 mg Q6HP PRN IV 08/14/24 09:30 08/19/24 09:29 Cefazolin Sodium 50 ml @ 100 mls/hr Q8H IV 08/14/24 16:30 08/15/24 08:59 08/15/24 01:26 100 MLS/HR Acetaminophen 1,000 mg Q12H PRN IV 08/14/24 10:30 08/14/24 20:55 1,000 MG Nalbuphine HCl 5 mg Q4HP PRN IV 08/14/24 12:30 08/14/24 20:56 5 MG laboratory and microbiology Laboratory Tests 08/14/24 20:55 08/13/24 11:50 Test 08/13/24 11:50 Range/Units Serum Glucose 77 74-106 mg/dL Objective O: A&O x3 NAD. Afebrile, VSS Chest: heart and lung sounds normal. Breasts: Nipples intact w/o cracks or soreness Abdomen: normal BS, soft, non-tender, no rebound or guarding, fundus firm @ U- 1, Lower abdominal Incision site with Sylke dressing on, open to fresh air same stained in the middle with dried blood, otherwise clean, dry and intact. , edges in good approximation. No edema, erythema or induration Extremities: no edema or tenderness Lochia - minimal Assessment/Plan 24yo now Post operative & ppd #1 s/p Repeat Section doing well. Anemia Blood Type: A Rh: Positive Breast feeding Rubella Immune Pain control with medications Plan discussed with: Patient Visit Coding OBGYN Date of Service: August 15, 2024 Billing Provider: DONELL WAY CNM LASER BEAM MACHINE OPERATOR Common Visit Codes: [id number] INP/OBS CARE(HIGH) DONELL WAY CNM August 15, 2024 03:39
[2024-08-15] MEDS: KETOROLAC TROMETH 30 MG/ML 1ML VIAL IV PRN (04:43)
--- NOTE | 2024-08-15 07:13 | DVHPN2 ---
Chief Complaints Patient reports: No new complaints Nursing reports: No new complaints Objective Vitals Vital Signs Date Time Temp Pulse Resp B/P (MAP) Pulse Ox O2 Delivery O2 Flow Rate FiO2 08/15/24 05:45 60 16 91/60 08/15/24 05:39 96 08/15/24 02:45 98.0 98.0 08/14/24 19:15 Room Air 08/14/24 09:25 0 93 Medications Current Medications Medications (Trade) Dose Ordered Sig/Lynn Route PRN Reason Start Time Stop Time Status Last Admin Acetaminophen (Ofirmev) 1,000 mg Q12H PRN IV PAIN SCALE 1-3 OR TEMP>100.4 08/14/24 10:30 08/14/24 20:55 Cefazolin Sodium 50 ml @ 100 mls/hr Q8H IV 08/14/24 16:30 08/15/24 08:59 08/15/24 01:26 Diphenhydramine HCl (Benadryl Injection) 25 mg Q4HP PRN IV FOR ITCHING 08/14/24 09:30 08/15/24 01:43 Ketorolac Tromethamine (Toradol Injection) 30 mg Q6HP PRN IV MODERATE PAIN (4-6 PAIN SCALE) 08/14/24 09:30 08/19/24 09:29 08/15/24 04:43 Nalbuphine HCl (Nubain) 5 mg Q4HP PRN IV SEVERE PAIN (7-10 PAIN SCALE) 08/14/24 12:30 08/15/24 04:43 Ondansetron HCl (Zofran) 4 mg Q4HP PRN IV NAUSEA / VOMITING 08/14/24 08:30 Ondansetron HCl (Zofran) 4 mg Q4HP PRN IV NAUSEA / VOMITING 08/14/24 09:30 General: Normal Lungs: Normal Cardiovascular: Normal Abdominal: Soft Extremities: Normal Studies Laboratory Tests 08/13/24 11:50 Test 08/13/24 11:50 Range/Units Serum Glucose 77 74-106 mg/dL Ass/Plan Assessment s/p rcs Plan supportive care Visit Coding OBGYN Date of Service: August 15, 2024 Billing Provider: GAGAN CRESPO DO STRING STUDIES DIRECTOR Common Visit Codes: [id number] INP/OBS CARE(HIGH) GAGAN CRESPO DO August 15, 2024 07:13
[2024-08-15 07:23] LABS: Basophils # (auto) 0 10 ^3/uL (0-0.2); Basophils % (auto) 0.2 % (0.0-2.0); Eosinophils # (auto) 0 10 ^3/uL (0-0.8); Eosinophils % (auto) 0.2 % (0.0-7.0); Hematocrit 31.3 % (36.0-46.0); Hemoglobin 10.6 g/dL (12.2-16.2); Lymphocytes # (auto) 1.6 10 ^3/uL (0.4-5.4); Lymphocytes % (auto) 13.3 % (10.0-50.0); Mean Corpuscular Hemoglobin 29.4 pg (28.0-32.0); Mean Corpuscular Hgb Conc. 33.8 g/dL (32.0-36.0); Mean Corpuscular Volume 86.8 fL (80.0-100.0); Monocytes # (auto) 0.7 10 ^3/uL (0-1.3); Neutrophils # (auto) 9.8 10 ^3/uL (1.6-8.6); Neutrophils % (auto) 80.3 % (37.0-80.0); Platelet Count (auto) 218 10^3/uL (140-450); Red Cell Distribution Width 14.7 % (11.8-14.3); White Blood Cell 12.2 10^3/uL (4.4-10.8)
[2024-08-15] MEDS ORDERED: diphenhdrAMINE HCL 25 MG CAP PO PRN (09:45)
[2024-08-15] MEDS ORDERED: HYDROcodone-ACET 5/325MG TAB PO PRN (09:45)
[2024-08-15] MEDS: SIMETHICONE 80 MG CHEWABLE TABLET PO SCH (12:49)
[2024-08-15] MEDS: IBUPROFEN 800 MG TAB PO PRN (12:49)
[2024-08-15] MEDS: HYDROcodone-ACET 5/325MG TAB PO PRN (17:19)
[2024-08-16 03:15] VITALS: BP 112/68; PULSE 78; RESP 16; TEMP 98.6; O2SAT 96
[2024-08-16 07:00] VITALS: BP 117/73; PULSE 80; RESP 16; TEMP 98.3; O2SAT 97
--- NOTE | 2024-08-16 07:39 | DVHPN2 ---
Progress Note Date Seen: August 16, 2024 Subjective S: Lochia minimal. Regular diet well tolerated. Ambulating and voiding well w/o feeling dizzy or lightheaded. Pain relieved with oral analgesics. Passing flatus but no BM yet. w/o problem Desires& Requests to be discharged today vital signs Vital Sign Date Time Temp Pulse Resp B/P (MAP) Pulse Ox O2 Delivery O2 Flow Rate FiO2 08/16/24 03:15 98.6 78 16 112/68 (83) 96 98.6 08/15/24 19:00 Room Air 08/14/24 09:25 0 93 Total Intake and Output 08/15/24 08/15/24 08/16/24 15:00 23:00 07:00 Output Total 1300 ml 400 ml 450 ml Balance -1300 ml -400 ml -450 ml medications Current Medications Medications Dose Ordered Sig/Lynn Route Start Time Stop Time Status Last Admin Dose Admin Dimethicone 80 mg QID PO 08/15/24 12:00 08/16/24 05:43 80 MG Ibuprofen 800 mg Q8HP PRN PO 08/15/24 09:45 08/16/24 05:43 800 MG Acetaminophen/ Hydrocodone Bitart 1 tab Q4HPRN PRN PO 08/15/24 09:45 08/16/24 01:13 1 TAB Acetaminophen/ Hydrocodone Bitart 2 tab Q4HPRN PRN PO 08/15/24 09:45 Diphenhydramine HCl 25 mg Q4HP PRN PO 08/15/24 09:45 laboratory and microbiology Laboratory Tests 08/15/24 06:50 08/13/24 11:50 Test 08/13/24 11:50 Range/Units Serum Glucose 77 74-106 mg/dL Objective A&O x3 NAD. Afebrile, VSS Chest: heart and lung sounds normal. Breasts: Nipples intact w/o cracks or soreness Abdomen: normal BS, soft, non-tender, no rebound or guarding, fundus firm @ U- 1, Lower abdominal Incision site with Sylke dressing on, open to fresh air, stained with dried blood at the center (about 1.5cm) otherwise same clean, dry and intact. No edema, erythema or induration Extremities: no edema or tenderness Lochia - minimal Assessment/Plan A/P: 24yo now Post operative & ppd #2 s/p Repeat Section doing well. Blood Type: A Rh: Positive Breast feeding Rubella Immune Pain control with oral medications Bowel regimen: Increase fluid intake and fiber in diet, Laxative PRN PP BCM Plan: undecided Discharge plan: May discharge home later today if condition remains stable Plan discussed with: Patient, Spouse Visit Coding OBGYN Date of Service: August 16, 2024 Billing Provider: DONELL WAY CNM ASSISTANT GROCERY Common Visit Codes: [id number] INP/OBS CARE(HIGH) DONELL WAY CNM August 16, 2024 07:39
--- NOTE | 2024-08-16 07:53 | DVHDS2 ---
Discharge Summary Date of Admission August 14, 2024 at 03:57 Date of Discharge: August 16, 2024 Admitting Diagnosis IUP at 39 weeks Scheduled Repeat Section Labs/Diagnostic Data: Laboratory Results Test 08/15/24 06:50 08/14/24 04:41 08/13/24 11:50 08/13/24 10:20 White Blood Count 12.2 10^3/uL (4.4-10.8) Red Blood Count 3.60 10^6/uL (4.0-5.20) Hemoglobin 10.6 g/dL (12.2-16.2) Hematocrit 31.3 % (36.0-46.0) Mean Corpuscular Volume 86.8 fL (80.0-100.0) Mean Corpuscular Hemoglobin 29.4 pg (28.0-32.0) Mean Corpuscular Hemoglobin Concent 33.8 g/dL (32.0-36.0) Red Cell Distribution Width 14.7 % (11.8-14.3) Platelet Count 218 10^3/uL (140-450) Mean Platelet Volume 6.8 fL (6.9-10.8) Neutrophils (%) (Auto) 80.3 % (37.0-80.0) Lymphocytes (%) (Auto) 13.3 % (10.0-50.0) Monocytes (%) (Auto) 6.0 % (0.0-12.0) Eosinophils (%) (Auto) 0.2 % (0.0-7.0) Basophils (%) (Auto) 0.2 % (0.0-2.0) Neutrophils # (Auto) 9.8 10 ^3/uL (1.6-8.6) Lymphocytes # (Auto) 1.6 10 ^3/uL (0.4-5.4) Monocytes # (Auto) 0.7 10 ^3/uL (0-1.3) Eosinophils # (Auto) 0 10 ^3/uL (0-0.8) Basophils # (Auto) 0 10 ^3/uL (0-0.2) Nucleated Red Blood Cells 0.0 % Hepatitis C Antibody Negative (Negative) Prothrombin Time 10.3 sec (9.3-11.8) Prothrombin Time INR 0.97 (0.9-1.15) Activated Partial Thromboplast Time 25.6 SEC (24.5-34.5) Sodium Level 140 mmol/L (136-145) Potassium Level 3.7 mmol/L (3.5-5.1) Chloride Level 110 mmol/L (98-107) Carbon Dioxide Level 20 mmol/L (20-31) Anion Gap 10 (5-15) Blood Urea Nitrogen 6 mg/dL (9-23) Creatinine 0.64 mg/dL (0.550-1.02) Glomerular Filtration Rate Calc 125 mL/min (>90) BUN/Creatinine Ratio 9.4 (10.0-20.0) Serum Glucose 77 mg/dL (74-106) Calcium Level 9.3 mg/dL (8.7-10.4) Total Bilirubin 0.6 mg/dL (0.2-1.0) Aspartate Amino Transferase (AST) 15 U/L (13-40) Alanine Aminotransferase (ALT) 12 U/L (7-40) Alkaline Phosphatase 110 U/L (46-116) Total Protein 6.4 g/dL (5.7-8.2) Albumin 3.9 g/dL (3.2-4.8) Treponema pallidum Antibody Non-reactive (Negative) Urine Color Light-yellow (Yellow) Urine Clarity Clear (Clear) Urine pH 7.0 (5.0-9.0) Urine Specific [place] 1.009 (1.001-1.035) Urine Protein Negative (Negative) Urine Ketones Negative (Negative) Urine Blood Negative /uL (Negative) Urine Nitrite Negative (Negative) Urine Bilirubin Negative (Negative) Urine Urobilinogen Normal mg/dL (Negative) Urine Leukocyte Esterase 2+ /uL (Negative) Urine RBC 2 /hpf (0 - 4) Urine Microscopic WBC 2 /HPF (0-5) Urine Squamous Epithelial Cells Few /hpf (<5) Urine Bacteria Few /hpf (None Seen) Urine Glucose Normal mg/dL (Normal) Urine Opiates Screen Neg (NEGATIVE) Urine Fentanyl Screen Neg (NEGATIVE) Urine Barbiturates Screen Neg (NEGATIVE) Urine Phencyclidine Screen Neg (NEGATIVE) Urine Amphetamines Screen Neg (NEGATIVE) Urine Benzodiazepines Screen Neg (NEGATIVE) Urine Cocaine Screen Neg (NEGATIVE) Urine Cannabinoids Screen Neg (NEGATIVE) Other Laboratory Tests 08/15/24 06:50 08/13/24 11:50 Brief Hx & Hospital Course: Ms Hopkins was admitted on 08/14/24 for repeat Section. Procedure completed w/o complication. course normal with patient meeting postoperative and milestones. Requests to be discharge home today. Operations or Procedures Repeat LSCS Condition at Discharge: Stable Final Diagnosis/Problems List same Discharge Disposition: Home Discharge Instruct/Medications Diet: Regular Diet comment: Diet: Routine regular diet rich in fiber, protein, iron and vitamin C with adequate fluid intake. Activity: No Restrictions, As Tolerated Activity comment: Activity: Unrestricted. Advance as tolerated. No heavy lifting, pushing or straining. Pelvic rest x 6 weeks Medications: Medications: Ibuprofen 600mg every 6 hours as needed for pain. Continue Vitamin and iron Discharge Statement: Instructions: Post operative and self care instructions given. emergency signs and symptoms including pre-eclampsia precautions and signs of PPD reviewed with patient. Follow up with OB Provider in 1 week "Patient was advised to return to the ER or call 911 if any headaches, dizziness, shortness of breath, chest pain, abdominal pain, bleeding, fevers, or worsening of medical condition. Patient was counseled about treatment plan, medications, possible side effects, patient�verbalized understanding. All questions were answered to the best of my ability. This discharge took greater then 30 minutes in planning, reviewing documentation, counseling the patient, and discussing with other team members." ASSESSMENT ASSESSMENT Assessment same Visit Coding OBGYN Date of Service: August 16, 2024 Billing Provider: DONELL WAY CNM CALL CENTER TEAM LEADER Common Visit Codes: [id number]/OBS DISCH DAY <30MIN DONELL WAY CNM August 16, 2024 07:53
--- NOTE | 2024-08-19 08:19 | DVHHP ---
ADMIT DATE: 08/14/2024 CHIEF COMPLAINT: Desires repeat section. HISTORY OF PRESENT ILLNESS: The patient is a 24-year-old female with EDC of 08/20, admitted for repeat section. The patient had previous section x1, wishes to proceed with repeat section. The patient was given the option of delivering at [place] because of some VSD finding on the ultrasound of the fetus; however, the patient states that Dr. Cassidy cleared her and does not want to deliver there. PAST MEDICAL HISTORY: None. PAST SURGICAL HISTORY: . SOCIAL HISTORY: None. HOSPICE VOLUNTEER HISTORY: Blood type A positive. The patient refused doing GDM. Understands risks and complications. FAMILY HISTORY: None. ALLERGIES: No known drug allergies. REVIEW OF SYSTEMS: Consistent with HPI. PHYSICAL EXAMINATION: VITAL SIGNS: Stable, afebrile. HEENT: Within normal limits. CARDIOVASCULAR: Regular rate and rhythm. LUNGS: Clear to auscultation. BREASTS: Breast symmetrical. No masses. ABDOMEN: Gravid. Positive heart. PELVIC: Deferred. EXTREMITIES: No clubbing, cyanosis or edema. IMPRESSION: * Intrauterine at 39 weeks, for repeat section. * Desired repeat section. PLAN: Repeat section. Informed consent obtained. Risks and complications of surgery including infection, bleeding, hematoma formation, injury to bowel or bladder, surrounding organ, possibility of DVT, pulmonary embolism, and risks of anesthesia discussed with the patient. Options reviewed. All questions answered. The patient fully understands. She wishes to proceed with the procedure. DO CHRISTINA Blount TID: [id number] RECEIPT: [id number]
== END 2024-08-16 13:20 | disposition home or self-care (01) | DRG 788 ==
LOC: LDRP 03:57
PROVIDERS: ADMIT Obstetrics & Gynecology; ATTEND Obstetrics & Gynecology
PROC: 10D00Z1 Extraction of Products of Conception, Low, Open Approach (ICD-10-PCS; principal; 2024-08-14 08:14)
DX: O40.3XX0 Polyhydramnios, third trimester, not applicable or unspecified (principal); O34.211 Maternal care for low transverse scar from previous cesarean delivery; O99.344 Other mental disorders complicating childbirth; O90.81 Anemia of the puerperium; F41.9 Anxiety disorder, unspecified; Z37.0 Single live birth; Z3A.39 39 weeks gestation of pregnancy
CPT/HCPCS: 36415; 80053; 80307; 81001; 85025; 85610; 85730; 86780; 86803; 86850; 86900; 86901; 94760; 94762; 96360; 96361; 96365; 96374; 96375; G0378; J0131; J1885; J2250; J2405; J2704